=== PATIENT | male | born 1960 | race Caucasian/White ===

== ENCOUNTER 2024-05-30 08:20 | Day surgery (SDC) | payer BC ==
[~2024-05-30] VITALS: Ht 180.3 cm; Wt 88.5 kg
[~2024-05-30 08:20] MED LIST: IBLOOD GLUCOSE TEST STRIP 1 EA TEST VI PRN; LACTATED RINGER'S 1,000 ML IV SCH; LIDOCAINE HCL 1% 5 ML SDV INJ ONE; MIDAZOLAM HCL 5 MG/5 ML VIAL IV PRN; OMEPRAZOLE20 MG PO; fentaNYL citrate 100 MCG/2 ML VIAL IV PRN
[2024-05-30 08:36] VITALS: BP 149/96
[2024-05-30] MEDS ORDERED: fentaNYL citrate 100 MCG/2 ML VIAL ONE (10:02)
[2024-05-30] MEDS ORDERED: MIDAZOLAM HCL 5 MG/5 ML VIAL ONE (10:02)
--- NOTE | 2024-05-30 11:44 | NUR ---
05/30/24 1144 Brandy Holbrook 1130-PT ARRIVES TO PACU RESTING ON LT SIDE, PT A+O X4, PT DENIES PAIN OR NAUSEA, PT ENCOURAGED TO PASS GAS. VSS ON RA, RR EVEN AND UNLABORED. 1135- AT BEDSIDE TO DISCUSS PROCEDURE RESULTS AND PLAN OF CARE W/ PT, ALL QUESTIONS ANSWERED.
[2024-05-30 11:49] VITALS: BP 124/93
--- NOTE | 2024-06-02 11:35 | OR ---
[facility] [address], [place] [address] Signed DATE OF OPERATION: 05/30/2024 SURGEON: Rangel Hernandez MD PREOPERATIVE DIAGNOSES: 1. Colon screening. 2. History of polyp in 2017. POSTOPERATIVE DIAGNOSES: Small polyp rectosigmoid (excised). PROCEDURE: Total colonoscopy to cecum with cold morcellation polypectomy x1. BEFORE SCHOOL BABYSITTER: Gray Hernandez M.D. INDICATIONS: This 63-year-old white man is a patient of Dr. Calle of [place], [place]. He underwent colonoscopy in 2017, at which time he had fragmentary colonic mucosa with mild adenomatous change and mild hyperplastic changes including the cecum and rectosigmoid. He currently has no symptoms of bleeding, diarrhea, or constipation and no family history of colon cancer. He is admitted at this time to undergo colonoscopy. He understands the risk of bleeding, infection, and perforation. FINDINGS: The prep was good. Complete colonoscopy was undertaken with visualization of the cecum. There was no evidence of diverticulosis. He had one small polyp in the rectosigmoid, which was excised with cold morcellation technique. Remaining colon was normal. DESCRIPTION OF PROCEDURE: The patient was brought to the endoscopy suite and placed in the lateral decubitus position and given intravenous sedation to the point of slurred speech and nystagmus. Digital rectal examination was normal. An Olympus video colonoscope was passed into the rectum and manipulated throughout the colon ultimately intubating the right colon with visualization of the cecum. Various maneuvers were undertaken to assess the cecum, though not fully intubated, was fully visualized. The scope was withdrawn from that point and examination throughout showed no sign of abnormality into the rectosigmoid, where small polyp was noted. This was Electronically Signed By: RANGEL HERNANDEZ MD 06/02/24 1135 PATIENT NAME: BRYNN AL OPERATIVE REPORT DATE OF : 62 REPORT #: [id number] PHYSICIAN: RANGEL HERNANDEZ MD PCP: GASPER CALLE DO REPORT IS CONFIDENTIAL AND NOT TO BE RELEASED WITHOUT AUTHORIZATION [facility] [address], [place] [address] Signed excised with cold morcellation technique. Retroflexed view of the rectum was normal. Scope was removed. The patient was taken to recovery room in good condition. CONCLUDING DIAGNOSIS: Polyps x1. PLAN: Recommend repeat colonoscopy in 7-10 years per current guidelines or sooner if symptoms should develop. He will return to the ongoing care of Dr. Borja in [place], [place]. MD CHRIS Emmanuel/ELIZABET /[id number] cc: Dr. Borja Copies: ~ Electronically Signed By: RANGEL HERNANDEZ MD 06/02/24 1135 PATIENT NAME: BRYNN AL OPERATIVE REPORT DATE OF : 62 REPORT #: [id number] PHYSICIAN: RANGEL HERNANDEZ MD PCP: GASPER CALLE DO REPORT IS CONFIDENTIAL AND NOT TO BE RELEASED WITHOUT AUTHORIZATION
--- NOTE | 2024-06-02 15:01 | PATH ---
[facility] [address] [place], [place] [address] Signed SPECIMEN(S): A SIGMOID POLYP SPECIMEN SOURCE: A. SIGMOID POLYP CLINICAL HISTORY: Personal history of colon polyps. Postop: Sigmoid polyp x 1 FINAL PATHOLOGIC DIAGNOSIS: Colon, sigmoid, polypectomy: - Tubular adenoma BRP MICROSCOPIC EXAMINATION: Histologic sections of all submitted blocks are examined by light microscopy. These findings, together with the gross examination, support the pathologic diagnosis. GROSS DESCRIPTION: The specimen, labeled and designated "[place] Al, sigmoid polyp," is received in formalin and consists of two montalvo soft tissue fragments, ranging from 0.2-0.3 cm. Entirely submitted in (A1). AB (under the direct supervision of a pathologist) The Gross Description was prepared using a voice recognition system. The report was reviewed for accuracy; however, sound-alike word errors, addition and/or deletions may occur. If there is any question about this report, please contact Client Services. ADDITIONAL NOTES: Immunohistochemical and/or in situ hybridization studies if performed in this case included appropriate positive controls that reacted as expected. This test was developed and its performance characteristics determined by [facility]. It has not been cleared or approved by the U.S. Food and Drug Administration. The FDA has determined that such clearance or approval is not necessary. This test is used for clinical purposes. It should not be regarded as investigational or for research. [facility] is certified under the Clinical Laboratory Improvement Amendments of 1988 (CLIA) as qualified to perform high complexity clinical laboratory testing. PATIENT NAME: BRYNN AL PATHOLOGY DATE OF : 62 REPORT #: [id number] PHYSICIAN: EDGAR ESTRADA PCP: GASPER CARDOZA DO REPORT IS CONFIDENTIAL AND NOT TO BE RELEASED WITHOUT AUTHORIZATION [address], [place] [address] Signed PERFORMING LABORATORY: Technical component was performed by [facility], [address] [place] [address] (CLIA# [id number]). Professional interpretation was performed by [facility] [address] [id number] Diagnostician: Tio Pickett MD Pathologist Electronically Signed 06/02/2024 Copies: ~ PATIENT NAME: BRYNN AL PATHOLOGY DATE OF : 62 REPORT #: [id number] PHYSICIAN: EDGAR ESTRADA PCP: GASPER CARDOZA DO REPORT IS CONFIDENTIAL AND NOT TO BE RELEASED WITHOUT AUTHORIZATION
== END 2024-05-30 11:57 | disposition home or self-care (01) ==
LOC: DS 08:20
PROVIDERS: ATTEND Surgery
PROC: 0DBN8ZZ Excision of Sigmoid Colon, Via Natural or Artificial Opening Endoscopic (ICD-10-PCS; principal; 2024-05-30 09:30)
DX: Z12.11 Encounter for screening for malignant neoplasm of colon (principal); D12.5 Benign neoplasm of sigmoid colon; K21.9 Gastro-esophageal reflux disease without esophagitis; Z72.0 Tobacco use; Z79.899 Other long term (current) drug therapy
CPT/HCPCS: 99153; G0500; J2250; J3010; J7121